=== PATIENT | male | born 2005 | race Caucasian/White ===

== ENCOUNTER 2023-04-14 08:21 | Inpatient (IN) | payer OTHER ==
[2023-04-08 11:47] VITALS: BMI 56.5
[2023-04-14] MEDS ORDERED: BUPIVACAINE HCL/PF 0.25% (2.5MG/ML) 10 ML VIAL ONE (10:04)
[2023-04-14] MEDS ORDERED: BUPIVACAINE HCL/PF 0.5% (5 MG/ML) 30 ML VIAL IJ ONE (11:06)
[2023-04-14] MEDS ORDERED: BUPIVACAINE LIPOSOME/PF (EXPAREL) 266 MG/20 ML VIAL ONE (11:06)
[2023-04-14] MEDS ORDERED: MIDAZOLAM HCL 2 MG/2 ML SINGLE DOSE VIAL ONE (11:07)
[2023-04-14] MEDS ORDERED: ROCURONIUM BROMIDE 50 MG/5 ML SYRINGE ONE ×3 (11:10→12:33)
[2023-04-14] MEDS ORDERED: SUCCINYLCHOLINE CHLORIDE 200 MG/10 ML SYRINGE ONE ×2 (11:11→13:29)
[2023-04-14] MEDS ORDERED: PROPOFOL 20 ML ONE ×3 (11:11→13:51)
[2023-04-14] MEDS ORDERED: ceFAZolin SODIUM 1 GM VIAL ONE ×3 (11:45)
[2023-04-14] MEDS ORDERED: SUGAMMADEX SODIUM 200 MG/2 ML VIAL ONE (11:45)
[2023-04-14] MEDS ORDERED: DEXAMETHASONE SOD PHOSPHATE 4 MG/1 ML VIAL ONE ×2 (11:56→11:57)
[2023-04-14] MEDS ORDERED: ONDANSETRON 4 MG/2 ML VIAL ONE ×2 (11:57→13:58)
[2023-04-14] MEDS ORDERED: KETOROLAC TROMETHAMINE 30 MG/1 ML VIAL ONE (11:57)
[2023-04-14] MEDS ORDERED: HYDROmorphone HCL/PF 1 MG/ML VIAL ONE ×3 (12:55→14:53)
[2023-04-14] MEDS ORDERED: GLYCOPYRROLATE 0.2 MG/1 ML VIAL ONE (13:51)
[2023-04-14] MEDS ORDERED: NEOSTIGMINE METHYLSULFATE 0.5 MG/1 ML - 10 ML MDV ONE (13:51)
[2023-04-14] MEDS ORDERED: SODIUM CHLORIDE 1,000 ML IV SCH (14:15)
[2023-04-14] MEDS ORDERED: HYDROmorphone HCl 2 MG/ML VIAL IVPUSH PRN (14:24)
[2023-04-14] MEDS ORDERED: ONDANSETRON 4 MG/2 ML VIAL IVPUSH PRN (14:24)
[2023-04-14] MEDS ORDERED: ACETAMINOPHEN 1000 MG/100 ML BAG IVPB ONE (14:24)
[2023-04-14] MEDS ORDERED: LACTATED RINGERS SOLUTION 1,000 ML IV SCH (14:30)
[2023-04-14] MEDS: METOCLOPRAMIDE HCL INJECTION 10 MG/2 ML VIAL IVPUSH SCH ×2 (14:41→21:59)
[2023-04-14 14:44] LABS: ALBUMIN 4.4 g/dl (3.4-5.0); BILIRUBIN,TOTAL 0.6 mg/dl (0.2-1); BLOOD UREA NITROGEN 8.1 mg/dl (7-18); CALCIUM 9.1 mg/dl (8.5-10.1); CREATININE 0.6 mg/dl (0.6-1.3); POTASSIUM 4.3 mmol/L (3.5-5.1); SGOT/AST 19.7 U/L (15-37); SGPT/ALT 34.9 U/L (7-52)
[2023-04-14 15:18] LABS: HEMATOCRIT 43.9 % (35.4-49); HEMOGLOBIN 15.3 G/dL (11.7-16.9); MCH 30.3 pg (25.7-33.7); MCHC 34.8 g/dl (32.0-35.9); MEAN CELL VOLUME 87.1 fl (80-96); MEAN PLT VOLUME 8.3 fl (7.5-11.1); PLATELET COUNT 260.3 10^3/uL (134-434); RBC 5.04 10^6/uL (4.00-5.60); RDW 13.6 % (11.9-15.9); WHITE BLOOD COUNT 18.1 10^3/uL (4.0-10.8)
[2023-04-14 17:56] LABS: HIV INTERPRETATION NEGATIVE (NEGATIVE)
[2023-04-14] MEDS: HYDROmorphone HCL/PF 1 MG/ML VIAL IVPB PRN (19:10)
[2023-04-14] MEDS: ONDANSETRON 4 MG/2 ML VIAL IVPUSH PRN (21:59)
[2023-04-14] MEDS: FAMOTIDINE 20 MG/50 ML IVPB 20 MG/50 ML MG IVPB SCH (22:00)
[2023-04-14 22:22] LABS: HEMATOCRIT 46.8 % (35.4-49); HEMOGLOBIN 16.3 G/dL (11.7-16.9); MCH 30.2 pg (25.7-33.7); MCHC 34.8 g/dl (32.0-35.9); MEAN CELL VOLUME 86.7 fl (80-96); MEAN PLT VOLUME 8.1 fl (7.5-11.1); PLATELET COUNT 267.3 10^3/uL (134-434); RDW 13.4 % (11.9-15.9)
[2023-04-15] MEDS ORDERED: SODIUM CHLORIDE 500 ML IV STA (00:33)
[2023-04-15] MEDS: ENOXAPARIN NA (PORCINE) 40 MG/0.4 ML DISP.SYRIN SQ SCH ×2 (01:11→12:37)
[2023-04-15] MEDS: ONDANSETRON 4 MG/2 ML VIAL IVPUSH PRN ×2 (01:15→02:30)
[2023-04-15] MEDS: HYDROmorphone HCL/PF 1 MG/ML VIAL IVPB PRN ×3 (01:20→11:09)
[2023-04-15 07:41] LABS: HEMATOCRIT 41.8 % (35.4-49); HEMOGLOBIN 14.5 G/dL (11.7-16.9); MCH 29.9 pg (25.7-33.7); MCHC 34.7 g/dl (32.0-35.9); MEAN CELL VOLUME 86.2 fl (80-96); MEAN PLT VOLUME 8.4 fl (7.5-11.1); PLATELET COUNT 279.1 10^3/uL (134-434); RBC 4.85 10^6/uL (4.00-5.60); RDW 13.3 % (11.9-15.9); WHITE BLOOD COUNT 11.9 10^3/uL (4.0-10.8)
[2023-04-15 07:52] LABS: ALBUMIN 4.2 g/dl (3.4-5.0); BILIRUBIN,TOTAL 0.6 mg/dl (0.2-1); BLOOD UREA NITROGEN 6.8 mg/dl (7-18); CALCIUM 8.7 mg/dl (8.5-10.1); CREATININE 0.6 mg/dl (0.6-1.3); POTASSIUM 3.9 mmol/L (3.5-5.1); SGOT/AST 21.9 U/L (15-37); SGPT/ALT 37.5 U/L (7-52); TOT PROT 6.7 g/dl (6.4-8.2)
[2023-04-15] MEDS: METOCLOPRAMIDE HCL INJECTION 10 MG/2 ML VIAL IVPUSH SCH ×2 (09:24→15:14)
[2023-04-15] MEDS: FAMOTIDINE 20 MG/50 ML IVPB 20 MG/50 ML MG IVPB SCH (09:25)
[2023-04-15] MEDS ORDERED: SODIUM CHLORIDE 1,000 ML IV SCH (11:00)
[2023-04-15] MEDS ORDERED: ACETAMINOPHEN 325 MG TABLET (FP) PO PRN (11:00)
[2023-04-15] MEDS ORDERED: oxyCODONE HCL 5 MG TABLET PO PRN (11:00)
[2023-04-15 14:23] VITALS: BP 142/65; PULSE 92; RESP 18; TEMP 99.1
== END 2023-04-15 18:05 | disposition home or self-care (01) | DRG 983 ==
LOC: FM/S 09:33
PROVIDERS: ADMIT Surgery; ATTEND Surgery
PROC: 0FB24ZX Excision of Left Lobe Liver, Percutaneous Endoscopic Approach, Diagnostic (ICD-10-PCS; 2023-04-14)
PROC: 0DJ04ZZ Inspection of Upper Intestinal Tract, Percutaneous Endoscopic Approach (ICD-10-PCS; 2023-04-14)
PROC: 0DT64ZZ Resection of Stomach, Percutaneous Endoscopic Approach (ICD-10-PCS; principal; 2023-04-14 12:01)
DX: E66.01 Morbid (severe) obesity due to excess calories (principal); Z68.43 Body mass index [BMI] 50.0-59.9, adult; K76.89 Other specified diseases of liver
CPT/HCPCS: 36415; 74240-TC-FY; 80053; 85027; 86850; 86900; 86901; 87389; 94760